=== PATIENT | female | born 1970 ===

== ENCOUNTER 2020-06-21 12:49 | Emergency (ER) | payer OTHER, SELFPAY ==
--- NOTE | 2020-06-21 13:31 | RAD ---
RIGHT FOOT 3 VIEWS: Date: 06/21/2020 HISTORY: Injury, right foot pain. FINDINGS/IMPRESSION: No acute fracture or dislocation is seen. Small plantar calcaneal spur is present. POS: AH
== END 2020-06-21 15:11 | disposition home or self-care (01) ==
LOC: ERS 12:49
DX: S90.121A Contusion of right lesser toe(s) without damage to nail, initial encounter (principal); F41.9 Anxiety disorder, unspecified; W20.8XXA Other cause of strike by thrown, projected or falling object, initial encounter; Y99.0 Civilian activity done for income or pay